=== PATIENT | male | born 1950 | race Caucasian/White ===

== ENCOUNTER → 2017-02-17 | Outpatient (REF) | payer MEDICARE ==
[2017-02-17 19:41] LABS: BASO % 0.4 % (0.0-1.0); EOS # 0.3 10^3/uL (0.0-0.50); EOS % 3.6 % (0.0-3.0); IMMATURE GRANULOCYTE # 0.1 10^3/uL (0-0); IMMATURE GRANULOCYTE % 0.7 % (0-0); LYMPH # 2.2 10^3/uL (1.5-4.5); LYMPH % 24.3 % (24.0-44.0); MEAN CORPUSCULAR HEMOGLOBIN 30.9 pg (27.0-33.0); MEAN CORPUSCULAR HGB CONC 33.6 g/dl (32.0-36.5); MEAN CORPUSCULAR VOLUME 92.1 fl (80.0-96.0); MONO # 0.5 10^3/uL (0.0-0.8); MONO % 5.6 % (0.0-5.0); NEUTROPHILS % 65.4 % (36.0-66.0); PLATELET COUNT, AUTOMATED 352 10^3/uL (150-450); RED CELL DISTRIBUTION WIDTH 13.9 % (11.5-14.5); WHITE BLOOD COUNT 9.2 10^3/uL (4.0-10.0)
[2017-02-17 20:26] LABS: ALBUMIN 3.4 GM/DL (3.2-5.2); ALBUMIN/GLOBULIN RATIO 1.06 (1.00-1.93); ALKALINE PHOSPHATASE 50 U/L (45-117); ALT/SGPT 24 U/L (12-78); ANION GAP 10 MEQ/L (8-16); AST/SGOT 18 U/L (7-37); BILIRUBIN,TOTAL 0.4 MG/DL (0.2-1.0); BLOOD UREA NITROGEN 12 MG/DL (7-18); CARBON DIOXIDE LEVEL 31 MEQ/L (21-32); CHLORIDE LEVEL 102 MEQ/L (98-107); CREATININE FOR GFR 0.77 MG/DL (0.70-1.30); GLOMERULAR FILTRATION RATE > 60.0 (>49); GLUCOSE, FASTING 179 MG/DL (80-110); POTASSIUM SERUM 4.2 MEQ/L (3.5-5.1); SODIUM LEVEL 143 MEQ/L (136-145); TOTAL PROTEIN 6.6 GM/DL (6.4-8.2)
== END ==
LOC: M LABDRWAD 19:33
DX: R78.81 Bacteremia (principal)
CPT/HCPCS: 80053

== ENCOUNTER 2018-03-07 11:39 | Emergency (ER) | payer MEDICARE ==
[~2018-03-07] VITALS: Ht 185.4 cm; Wt 110.0 kg
[2018-03-07] MEDS ORDERED: ONDANSETRON 4MG/2ML VIAL (J2405) IV ONE (12:15)
[2018-03-07] MEDS ORDERED: KETOROLAC 30 MG/ML VIAL (J1885) IV ONE (12:15)
[2018-03-07 12:24] LABS: BASO % 0.2 % (0.0-1.0); EOS # 0.1 10^3/uL (0.0-0.50); EOS % 0.5 % (0.0-3.0); HEMATOCRIT 40.9 % (42.0-52.0); HEMOGLOBIN 13.7 g/dl (13.5-17.5); LYMPH # 0.8 10^3/uL (1.5-4.5); LYMPH % 6.9 % (24.0-44.0); MEAN CORPUSCULAR HEMOGLOBIN 31.2 pg (27.0-33.0); MEAN CORPUSCULAR HGB CONC 33.5 g/dl (32.0-36.5); MEAN CORPUSCULAR VOLUME 93.2 fl (80.0-96.0); MONO # 0.4 10^3/uL (0.0-0.8); MONO % 3.1 % (0.0-5.0); NEUTROPHILS # 10.3 10^3/uL (1.8-7.7); PLATELET COUNT, AUTOMATED 224 10^3/uL (150-450); RED BLOOD COUNT 4.39 10^6/uL (4.30-6.10); WHITE BLOOD COUNT 11.5 10^3/uL (4.0-10.0)
[2018-03-07 12:56] LABS: ALBUMIN 3.4 GM/DL (3.2-5.2); ALT/SGPT 33 U/L (12-78); BILIRUBIN,TOTAL 0.6 MG/DL (0.2-1.0); BLOOD UREA NITROGEN 15 MG/DL (7-18); CALCIUM LEVEL 8.7 MG/DL (8.8-10.2); CARBON DIOXIDE LEVEL 29 MEQ/L (21-32); CHLORIDE LEVEL 105 MEQ/L (98-107); CPK CREATINE PHOSPHOKINASE 429 U/L (39-308); CREATININE FOR GFR 0.88 MG/DL (0.70-1.30); GAMMA GLUTAMYLTRANSPEPTIDASE 20 U/L (15-85); GLOMERULAR FILTRATION RATE > 60.0 (>49); GLUCOSE, FASTING 189 MG/DL (70-100); MB/CK RELATIVE INDEX 2.98 (< OR =4); SODIUM LEVEL 142 MEQ/L (136-145); TROPONIN I < 0.02 NG/ML (< 0.10)
--- NOTE | 2018-03-07 12:56 | REP ---
Clinical: Acute right upper quadrant abdominal pain. Technique: Valadez scale ultrasound using curved array transducer. Findings: Gallbladder demonstrates small amount of layering sludge and debris without wall thickening or pericholecystic fluid. No biliary ductal dilatation is appreciated. Common bile duct measures 6.5 mm diameter. Positive sonographic Barney's sign was elicited during examination. Fatty infiltration to the liver suggested without focal hepatic lesion identified. The pancreas is incompletely evaluated due to interposed bowel gas but visualized portions appear normal. The right kidney is normal in reniform shape without hydronephrosis and measures 11.7 x 6.6 x 5.6 cm. No ascites. Impression: 1. Cholelithiasis with sonographic Barney's sign. Acute cholecystitis cannot be excluded and clinical correlation is recommended. 2. Hepatic steatosis. Electronically Signed by Sina Berry MD 03/07/2018 12:48 P
[2018-03-07] MEDS ORDERED: KETO10TAB PO (13:29)
[2018-03-07] MEDS ORDERED: ZOFR4TAB14 PO (13:29)
[2018-03-07 13:41] VITALS: BP 133/72
--- NOTE | 2018-03-09 04:46 | ECGEPIP ---
Stationary ECG Study [facility] ED Test Date: 2018-03-07 Pat Name: HARRY ZUNIGA Department: Room: - Gender: M Manager Alliance: teodora : 1950 Requested By: VIVIAN Portillo PA-C Order Number: [id number] Reading MD: Jareth Doan Measurements Intervals [place] Rate: 61 P: 48 [place]: 216 QRS: 30 QRSD: 166 T: 36 QT: 459 QTc: 465 Interpretive Statements SINUS RHYTHM WITH FIRST DEGREE AV BLOCK LEFT BUNDLE BRANCH BLOCK NO PRIORS FOR COMPARISON Electronically Signed On 03-09-2018 4:45:59 EST by Jareth Doan
== END 2018-03-07 13:43 | disposition home or self-care (01) ==
LOC: M ED 11:39
DX: K80.20 Calculus of gallbladder without cholecystitis without obstruction (principal); R10.11 Right upper quadrant pain; Z90.49 Acquired absence of other specified parts of digestive tract
CPT/HCPCS: 76705; 80053; 82550; 82553; 82977; 84484; 85025; 93005; 96374; 96375; 99284; J1885; J2405

== ENCOUNTER 2019-03-22 16:27 | Inpatient (IN) | payer OTHER, MEDICARE ==
[~2019-03-22] VITALS: Ht 182.9 cm; Wt 113.8 kg
[~2019-03-22 16:27] MED LIST: ASPI81TA85 PO; ATOR1TAB19 PO; B-COTAB26 PO; CYCL5TAB PO; ETAN50SY SC; FOLI800C PO; GABA-843 PO; HYDR-3719 PO; IODOGEL TOP; KETO10TAB PO; KETO2CR TOP; LISI40TA PO; METF500T13 PO; METH2.5T48 PO; MUPI2OI TOP; OMEP-358 PO; OMEP10CASR PO; PATIENT COMMENTS; SERT-138 PO; SERT-141 PO; SODI0.65; TRIA1CR80 TOP; VITMTA PO; ZOFR4TAB14 PO
[2019-03-22] MEDS ORDERED: LORazepam 1 MG TAB PO STA (17:06)
[2019-03-22 17:10] LABS: HEMATOCRIT 42.3 % (42.0-52.0); HEMOGLOBIN 14.3 g/dl (13.5-17.5); MEAN CORPUSCULAR HGB CONC 33.8 g/dl (32.0-36.5); MEAN CORPUSCULAR VOLUME 91.6 fl (80.0-96.0); PLATELET COUNT, AUTOMATED 237 10^3/uL (150-450); RED BLOOD COUNT 4.62 10^6/uL (4.30-6.10); WHITE BLOOD COUNT 8.5 10^3/uL (4.0-10.0)
[2019-03-22 17:45] LABS: ACETAMINOPHEN LEVEL < 2.0 UG/ML (10.0-30.0); ALBUMIN 3.8 GM/DL (3.2-5.2); ALT/SGPT 32 U/L (12-78); BILIRUBIN,DIRECT 0.1 MG/DL (0.0-0.2); BILIRUBIN,TOTAL 0.4 MG/DL (0.2-1.0); BLOOD UREA NITROGEN 22 MG/DL (7-18); CALCIUM LEVEL 8.6 MG/DL (8.8-10.2); CARBON DIOXIDE LEVEL 28 MEQ/L (21-32); CHLORIDE LEVEL 107 MEQ/L (98-107); CREATININE FOR GFR 0.96 MG/DL (0.70-1.30); ETHYL ALCOHOL (ETHANOL) < 0.003 % (0.000-0.010); GLOMERULAR FILTRATION RATE > 60.0 (>49); GLUCOSE, FASTING 117 MG/DL (70-100); POTASSIUM SERUM 4.3 MEQ/L (3.5-5.1); SALICYLATE LEVEL < 1.7 MG/DL (5.0-30.0); SODIUM LEVEL 142 MEQ/L (136-145)
[2019-03-22 20:25] LABS: AMPHETAMINES LEVEL URINE NEGATIVE (NEGATIVE); BARBITURATES URINE NEGATIVE (NEGATIVE); BENZODIAZEPINES URINE NEGATIVE (NEGATIVE); CANNABINOIDS URINE NEGATIVE (NEGATIVE); COCAINE METABOLITE URINE NEGATIVE (NEGATIVE); METHADONE URINE NEGATIVE (NEGATIVE); OPIATES URINE NEGATIVE (NEGATIVE); PHENCYCLIDINE URINE NEGATIVE (NEGATIVE)
[2019-03-22] MEDS ORDERED: GABAPENTIN 300 MG CAP PO ONE (20:30)
[2019-03-22] MEDS ORDERED: CYCLOBENZAPRINE 5MG TABLET PO ONE (21:00)
[2019-03-22] MEDS ORDERED: ATORVASTATIN 20 MG TAB PO ONE (21:00)
[2019-03-22] MEDS ORDERED: ASPIRIN 81 MG CHEW TABLET PO ONE (21:00)
[2019-03-22] MEDS ORDERED: LIDOCAINE 5% (LIDODERM) PATCH TD ONE (21:45)
[2019-03-22] MEDS ORDERED: DICL1GEL3 TOP (22:19)
[2019-03-22] MEDS ORDERED: HM S0.65 (22:19)
[2019-03-22] MEDS ORDERED: SERT50TA29 PO (22:19)
[2019-03-22] MEDS ORDERED: OMEP-221 PO (22:19)
[2019-03-22] MEDS ORDERED: LIDO5OIN19 EXT (22:19)
[2019-03-22] MEDS ORDERED: GENT1SOL16 OU (22:19)
[2019-03-22] MEDS ORDERED: CAPS0.022 TOP (22:19)
[2019-03-22] MEDS ORDERED: MAALOX 30 ML SUSP *UDC PO PRN (22:45)
[2019-03-22] MEDS ORDERED: MOM 30ML SUSPENSION UDC PO PRN (22:45)
[2019-03-23 00:03] VITALS: BP 139/85
[2019-03-23 07:56] VITALS: BP 139/83
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
[2019-03-23] MEDS ORDERED: **NOTE PATIENT COMMENT** MISC XX ONE (09:00)
[2019-03-23] MEDS ORDERED: PREVNAR 13 VACCINE SYRINGE (CPT CODE:90670) IM ONE (09:00)
[2019-03-23] MEDS: ACETAMINOPHEN TAB 650MG DOSE (2X325MG) PO PRN (10:45)
[2019-03-23] MEDS ORDERED: SERTRALINE HCL 50 MG TAB PO ONE (10:45)
[2019-03-23 15:49] VITALS: BP 114/75
--- NOTE | 2019-03-23 16:03 | HPEPDOC ---
General Date of Admission Mar 22, 2019 at 22:34 Date of Service: Mar 23, 2019 Chief Complaint The patient is a 68-year-old male admitted with a reason for visit of Unspecified Depressive Disorder. Source: Patient Exam Limitations: No limitations History of Present Illness 68 year old male presents with suicidal ideations. Seen and evaluated at bedside, denies cp/pressure, n/v/d, abdominal pain, shortness of breath, urinary complaints. States he feels fine and has no specific complaints. Home Medications Scheduled Aspirin (Aspir 81) 81 Mg Tab, 81 MG PO DAILY, (Reported) Atorvastatin Calcium (Atorvastatin Calcium) 10 Mg Tab, 5 MG PO QHS, (Reported) Cyclobenzaprine HCl (Cyclobenzaprine HCl) 5 Mg Tab, 5 MG PO QHS, (Reported) Folic Acid/Vit B Complex and C (U-Hihueve-Atypgyy C Tr Tablet) 1 Tab Tab, 1 TAB PO DAILY, (Reported) Gabapentin (Gabapentin) 300 Mg Cap, 300 MG PO Q8H, (Reported) Metformin HCl (Metformin HCl) 500 Mg Tab, 500 MG PO BIDWM, (Reported) Multivitamins (Thera M Plus Tablet) 1 Tab Tab, 1 TAB PO DAILY, (Reported) Omeprazole (Omeprazole) 40 Mg Capsule.dr, 40 MG PO ACB, (Reported) Sertraline HCl (Sertraline HCl) 100 Mg Tab, 100 MG PO DAILY, (Reported) TAKES WITH 50MG FOR 150MG TOTAL Sertraline HCl (Sertraline HCl) 50 Mg Tablet, 50 MG PO DAILY, (Reported) TAKES WITH 100MG FOR 150MG TOTAL Scheduled PRN Capsaicin (Capsaicin) 0.025% Cream..g., 1 DOSE TOP TID PRN for PAIN, (Reported) Dextran/Hypromellose (Genteal Tears 0.1%-0.3% Drop) 15 Ml Drops, 1 DROP OU QID PRN for DRY EYES, (Reported) Diclofenac Sodium (Diclofenac Sodium) 1% 100GM Gel..gram., 4 GM TOP BID PRN for PAIN, (Reported) Hydrocodone/Acetaminophen (Hydrocodone-Acetamin 10-325 mg) 1 Tab Tab, 1 TAB PO Q6H PRN for PAIN, (Reported) Lidocaine (Lidocaine) 120 Gm Oint...g., 1 DOSE EXT DAILY PRN for PAIN, (Reported) APPLIES TO BACK Mupirocin (Mupirocin) 2 % Oin, 1 DOSE TOP BID PRN for BLISTERS, (Reported) APPLY TO LIP Sodium Chloride (Saline Nasal [place]) 44 Ml [place], 2 SPRAYS NA QID PRN for NASAL CONGESTION, (Reported) Allergies Coded Allergies: niacin (Verified Allergy, Unknown, 03/22/19) Past Medical History Medical History HLD, PTSD, chronic lower back pain, RA Surgical History small bowel resection Family History Significant Family History: No pertinent family hx Social History * Smoker: Denies Alcohol: Denies Drugs: denies A-FIB/CHADSVASC A-FIB History Current/History of A-Fib/PAF?: No Current PO Anticoag Therapy: No Age/Risk Factor Scoring CHADSVASC: CHADSVASC Response (Comments) Value Age Risk Factor Age 65-74 years old 1 Gender Risk Factor Male 0 Hx of CHF No 0 Hx of HTN No 0 Hx of Stroke/TIA/or VTE No 0 Hx of Diabetes Yes 1 Hx of Vascular Disease No 0 Total 2 Review of Systems Constitutional: Denies: Chills, Fever, Night Sweats Physical Examination General Exam: Positive: Alert, No Acute Distress Vital Signs Vital Signs Date Time Temp Pulse Resp B/P (MAP) Pulse Ox O2 Delivery O2 Flow Rate FiO2 03/23/19 15:49 97.5 86 16 114/75 (88) 03/23/19 00:03 Room Air 03/22/19 23:01 100 Laboratory Data Labs 24H Laboratory Tests 2 03/22/19 16:54: Nucleated Red Blood Cells % (auto) 0.0, Anion Gap 7L, Glomerular Filtration Rate > 60.0, Calcium Level 8.6L, Total Bilirubin 0.4, Direct Bilirubin 0.1, Aspartate Amino Transf (AST/SGOT) 29, Alanine Aminotransferase (ALT/SGPT) 32, Alkaline Phosphatase 71, Total Protein 7.0, Albumin 3.8, Albumin/Globulin Ratio 1.19, Thyroid Stimulating Hormone (TSH) 2.060, Salicylates Level < 1.7L, Acetaminophen Level < 2.0L, Ethyl Alcohol Level < 0.003 03/22/19 19:39: Urine Opiates Screen NEGATIVE, Urine Methadone Screen NEGATIVE, Urine Barbiturates Screen NEGATIVE, Urine Phencyclidine Screen NEGATIVE, Urine Amphetamines Screen NEGATIVE, Urine Benzodiazepines Screen NEGATIVE, Urine Cocaine Metabolite Screen NEGATIVE, Urine Cannabinoids Screen NEGATIVE CBC/BMP Laboratory Tests 03/22/19 16:54 Assessment/Plan 1. suicidal ideations - management as per psych. 2. HLD - continue atorvastatin. 3. DM2 - continue metformin. Please reconsult as needed. Plan / VTE VTE Prophylaxis Ordered?: No VTE Exclusion Mechanical Proph: Low Risk for VTE ERIC THOMAS MD Mar 23, 2019 16:03
[2019-03-24 06:31] VITALS: BP 149/91
[2019-03-24] MEDS: SERTRALINE HCL 50 MG TAB PO SCH (08:26)
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
[2019-03-24] MEDS ORDERED: MUPIROCIN 2% OINT 22 GM TUBE TOP PRN (10:00)
[2019-03-24] MEDS ORDERED: LIDOCAINE 5% OINT 30 GM TOP PRN (10:00)
[2019-03-24] MEDS ORDERED: SODIUM CHLORIDE NASAL 0.65% SPRAY BTL (OCEAN) PRN (10:00)
[2019-03-24] MEDS ORDERED: CAPSAICIN 0.025% CR 60 GM TOP PRN (10:00)
[2019-03-24] MEDS: GABAPENTIN 300 MG CAP PO SCH ×2 (13:28→21:24)
--- NOTE | 2019-03-24 14:51 | IPNPDOC ---
Subjective Date Seen The patient was seen on 03/24/19. Subjective Chief Complaint/HPI Seen and evaluated at bedside. Complaints of "redness to my R eye since I woke up this morning". Denies any significant eye pain, just "sore sometimes when I close my eye". Denies vision changes, diplopia, discharge, fever/chills, scratching or injury/foreign body. BP running in 130-140's range. General: Reports: Normal Appetite; Denies: Chills, Night Sweats, Fatigue, Malaise Constitutional: Denies: Chills, Fever, Night Sweats Eyes: Reports: Conjunctivae inflammation, Redness ENT: Denies: Head Aches, Ear Pain, Dysphagia Skin: Denies: Rash, Lesions, Breakdown Pulmonary: Denies: Dyspnea, Cough Cardiovascular: Denies: Chest Pain, Palpitations, Orthopnea, Paroxysmal Noc. Dyspnea, Lt Headedness Gastrointestinal: Denies: Nausea, Vomiting, Abdominal Pain, Diarrhea, Constipation Genitourinary: Denies: Dysuria, Frequency, Incontinence, Retention Hematologic: Denies: Bruising, Bleeding Excessively Musculoskeletal: Denies: Neck Pain, Back Pain, Joint Pain, Muscle Pain, Spasms Neurological: Denies: Weakness, Numbness, Change in speech, Confusion Psych: Reports: Mood Normal; Denies: Depression, Memory Issues Objective Physical Examination General Exam: Positive: Alert, No Acute Distress Eye Exam: Positive: Other Eye Symptoms (conjunctival hemorrhage R eye, no foreign body noted, no discharge.) ENT Exam: Positive: Atraumatic, Mucous membr. moist/pink, Pharynx Normal Neck Exam: Positive: Supple; Negative: JVD, thyromegaly Chest Exam: Positive: Clear to auscultation, Normal air movement Heart Exam: Positive: Rate Normal, Regular Rhythm, Normal S1, Normal S2; Negative: Murmurs, Rubs Telemetry: Positive: No significant arrhythmia Abdomen Exam: Positive: Normal bowel sounds, Soft; Negative: Tenderness, Hepatospenomegaly Male Exam: Positive: Normal Genital Exam Extremity Exam: Positive: Normal pulses; Negative: Clubbing, Cyanosis, Edema Skin Exam: Positive: Nl turgor and temperature; Negative: Rash, Breakdown Neuro Exam: Positive: Normal Gait, Normal Speech, Cranial Nerves 3-12 NL, Reflexes 2+ Psych Exam: Positive: Mental status NL, Mood NL, Oriented x 3 Assessment /Plan Assessment 1. subconjunctival hemorrhage R eye - denies trauma to eye, no foreign body noted on exam. - no vision changes or significant eye pain noted. - denies excessive sneezing, coughing, straining, excessive eye rubbing. - no signs of infections noted. - BP has been steady in 130-140's systolic. - would recommend artificial tears eye drops applied to R eye at least twice daily for any irritation. - symptoms usually will improve/resolve over the course of the next few days. Please call or reconsult as needed if symptoms persist of worsen. Thank you. Plan/VTE VTE Prophylaxis Ordered?: No VS, I&O, 24H, Fishbone Vital Signs/I&O Vital Signs Date Time Temp Pulse Resp B/P (MAP) Pulse Ox O2 Delivery O2 Flow Rate FiO2 03/24/19 06:31 97.5 79 14 149/91 (110) Room Air 03/22/19 23:01 100 ERIC THOMAS MD Mar 24, 2019 14:51
[2019-03-24] MEDS ORDERED: POLYVINYL ALCOHOL OPHTH SOLN 15 ML(LIQUITEARS) OD PRN (15:00)
[2019-03-24 16:40] VITALS: BP 125/72
[2019-03-24] MEDS: metFORMIN (GLUCOPHAGE) 500 MG TAB PO SCH (17:32)
[2019-03-24] MEDS: CYCLOBENZAPRINE 5MG TABLET PO SCH (21:24)
[2019-03-24] MEDS: ATORVASTATIN 5MG PER 1/2 TABLET PO SCH (21:24)
[2019-03-24] MEDS: traZODone 50 MG TAB PO PRN (21:26)
[2019-03-25] MEDS: GABAPENTIN 300 MG CAP PO SCH ×3 (05:50→21:16)
[2019-03-25 06:39] VITALS: BP 140/86
[2019-03-25] MEDS: metFORMIN (GLUCOPHAGE) 500 MG TAB PO SCH ×2 (07:56→17:12)
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
[2019-03-25] MEDS: MULTIVITAMINS/MINERALS THERAP 1 TAB PO SCH (09:18)
[2019-03-25] MEDS: VITAMIN B COMPLEX/VIT C CAP PO SCH (09:18)
[2019-03-25] MEDS: ASPIRIN 81 MG ENTERIC TAB PO SCH (09:18)
[2019-03-25] MEDS: SERTRALINE HCL 50 MG TAB PO SCH (09:18)
[2019-03-25 16:17] VITALS: BP 119/75
[2019-03-25] MEDS: ATORVASTATIN 5MG PER 1/2 TABLET PO SCH (20:03)
[2019-03-25] MEDS: traZODone 50 MG TAB PO PRN (20:03)
[2019-03-25] MEDS: CYCLOBENZAPRINE 5MG TABLET PO SCH (20:03)
[2019-03-25] MEDS: ACETAMINOPHEN TAB 650MG DOSE (2X325MG) PO PRN (22:25)
[2019-03-26] MEDS: GABAPENTIN 300 MG CAP PO SCH ×3 (05:49→21:18)
[2019-03-26 06:39] VITALS: BP_SYST 131; BP_SYST 134; BP_DIAS 74; BP_DIAS 82
[2019-03-26] MEDS: metFORMIN (GLUCOPHAGE) 500 MG TAB PO SCH ×2 (08:07→17:58)
[2019-03-26] MEDS: ASPIRIN 81 MG ENTERIC TAB PO SCH (08:55)
[2019-03-26] MEDS: MULTIVITAMINS/MINERALS THERAP 1 TAB PO SCH (08:57)
[2019-03-26] MEDS: VITAMIN B COMPLEX/VIT C CAP PO SCH (08:58)
[2019-03-26] MEDS: SERTRALINE HCL 50 MG TAB PO SCH (08:58)
[2019-03-26] MEDS: ACETAMINOPHEN TAB 650MG DOSE (2X325MG) PO PRN ×2 (08:59→15:35)
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
[2019-03-26 16:59] VITALS: BP 113/67
[2019-03-26] MEDS: CYCLOBENZAPRINE 5MG TABLET PO SCH (21:18)
[2019-03-26] MEDS: traZODone 50 MG TAB PO PRN (21:18)
[2019-03-26] MEDS: ATORVASTATIN 5MG PER 1/2 TABLET PO SCH (21:18)
[2019-03-27] MEDS: GABAPENTIN 300 MG CAP PO SCH ×2 (06:12→14:11)
[2019-03-27 07:00] VITALS: BP 149/78
[2019-03-27] MEDS ORDERED: SERT-138 PO (08:49)
[2019-03-27] MEDS ORDERED: TRAZ-252 PO (08:49)
[2019-03-27] MEDS ORDERED: SERT50TA29 PO (08:49)
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
[2019-03-27] MEDS: ASPIRIN 81 MG ENTERIC TAB PO SCH (08:55)
[2019-03-27] MEDS: SERTRALINE HCL 50 MG TAB PO SCH (08:55)
[2019-03-27] MEDS: MULTIVITAMINS/MINERALS THERAP 1 TAB PO SCH (08:55)
[2019-03-27] MEDS: metFORMIN (GLUCOPHAGE) 500 MG TAB PO SCH (08:55)
[2019-03-27] MEDS: VITAMIN B COMPLEX/VIT C CAP PO SCH (08:55)
[2019-03-27] MEDS: ACETAMINOPHEN TAB 650MG DOSE (2X325MG) PO PRN (08:56)
== END 2019-03-27 14:16 | disposition home or self-care (01) | DRG 882 ==
LOC: M ED 16:27 → M ED INP 22:34 → M PSY 23:55
PROVIDERS: ADMIT Psychiatry & Neurology Psychiatry; ATTEND Psychiatry & Neurology Psychiatry
DX: F43.10 Post-traumatic stress disorder, unspecified (principal); R45.851 Suicidal ideations; R45.850 Homicidal ideations; M54.5 Low back pain; E78.5 Hyperlipidemia, unspecified; M06.9 Rheumatoid arthritis, unspecified; H11.31 Conjunctival hemorrhage, right eye; E11.9 Type 2 diabetes mellitus without complications; Z91.14 Patient's other noncompliance with medication regimen; Z79.82 Long term (current) use of aspirin; Z79.84 Long term (current) use of oral hypoglycemic drugs; Z79.899 Other long term (current) drug therapy; Z88.8 Allergy status to other drugs, medicaments and biological substances

== ENCOUNTER 2021-08-31 14:34 | Emergency (ER) | payer OTHER ==
[~2021-08-31] VITALS: Ht 185.4 cm; Wt 104.8 kg
[~2021-08-31 14:34] MED LIST changes: -ASPI81TA85 PO; +ASPI81TA86 PO; +CAPS0.022 TOP; +DICL1GEL3 TOP; +GABA-282 PO; -GABA-843 PO; +GENT1SOL16 OU; +HM S0.65; +LIDO5OIN19 EXT; -LISI40TA PO; +LISI40TA4 PO; +OMEP40CA5 PO; +SERT50TA29 PO; +TRAZ-252 PO
[2021-08-31 17:55] LABS: BASO % 0.4 % (0.0-1.0); EOS # 0.2 10^3/uL (0.0-0.5); EOS % 1.8 % (0.0-3.0); HEMOGLOBIN 13.5 g/dl (13.5-17.5); LYMPH # 1.4 10^3/uL (1.5-5.0); LYMPH % 17.1 % (24.0-44.0); MEAN CORPUSCULAR HEMOGLOBIN 30.5 pg (27.0-33.0); MEAN CORPUSCULAR HGB CONC 33.8 g/dl (32.0-36.5); MEAN CORPUSCULAR VOLUME 90.3 fl (80.0-96.0); MONO # 0.6 10^3/uL (0.0-0.8); MONO % 6.7 % (2.0-8.0); NEUTROPHILS # 6.1 10^3/uL (1.5-8.5); NEUTROPHILS % 73.8 % (36.0-66.0); PLATELET COUNT, AUTOMATED 186 10^3/uL (150-450); RED BLOOD COUNT 4.43 10^6/uL (4.30-6.10); WHITE BLOOD COUNT 8.2 10^3/uL (4.0-10.0)
[2021-08-31 18:08] LABS: ALBUMIN 3.6 GM/DL (3.2-5.2); ALT/SGPT 32 U/L (12-78); BILIRUBIN,DIRECT 0.2 MG/DL (0.0-0.2); BILIRUBIN,TOTAL 0.4 MG/DL (0.2-1.0); BLOOD UREA NITROGEN 16 MG/DL (7-18); CALCIUM LEVEL 8.6 MG/DL (8.8-10.2); CARBON DIOXIDE LEVEL 28 MEQ/L (21-32); CHLORIDE LEVEL 109 MEQ/L (98-107); CREATININE FOR GFR 0.82 MG/DL (0.70-1.30); GLOMERULAR FILTRATION RATE > 60.0 (>42); GLUCOSE, FASTING 90 MG/DL (70-100); POTASSIUM SERUM 4.2 MEQ/L (3.5-5.1); SODIUM LEVEL 143 MEQ/L (136-145); TOTAL PROTEIN 6.4 GM/DL (6.4-8.2)
[2021-08-31 18:09] LABS: HEMOGLOBIN A1c 5.5 %
[2021-08-31] MEDS ORDERED: VANCOMYCIN HCL 2,000 MG in D5W 500 ML IV ONE (18:20)
[2021-08-31 18:51] LABS: ERYTHROCYTE SEDIMENTATION RATE 16 mm/hr (0-20)
[2021-08-31] MEDS ORDERED: VANCOMYCIN HCL 1,000 MG, VIAL MATE ADAPTER 1 EACH in NS 250 ML IV ONE ×2 (19:00→20:00)
[2021-08-31] MEDS ORDERED: PROHANCE 279.3MG/ML 15ML VIAL As Ordered ONE (20:15)
[2021-08-31] MEDS ORDERED: PROHANCE 279.3MG/ML 5ML VIAL As Ordered ONE (20:15)
[2021-08-31] MEDS ORDERED: BACT800T5 PO (21:53)
[2021-08-31 23:12] VITALS: BP 146/72
== END 2021-09-01 00:15 | disposition home or self-care (01) ==
LOC: M ED 14:34
DX: E11.8 Type 2 diabetes mellitus with unspecified complications (principal); M53.85 Other specified dorsopathies, thoracolumbar region; G54.8 Other nerve root and plexus disorders; G83.4 Cauda equina syndrome; M48.00 Spinal stenosis, site unspecified; S91.104A Unspecified open wound of right lesser toe(s) without damage to nail, initial encounter; X58.XXXA Exposure to other specified factors, initial encounter; Y92.89 Other specified places as the place of occurrence of the external cause; I10 Essential (primary) hypertension; E78.5 Hyperlipidemia, unspecified; Z87.19 Personal history of other diseases of the digestive system; Z88.8 Allergy status to other drugs, medicaments and biological substances; Z79.899 Other long term (current) drug therapy; Z79.82 Long term (current) use of aspirin; Z79.84 Long term (current) use of oral hypoglycemic drugs
CPT/HCPCS: 72158; 73660; 80048; 80076; 83036; 85025; 85652; 86140; 96365; 96366; 96367; 99283; A9576; J3370

== ENCOUNTER → 2022-01-27 | Outpatient (REF) | payer OTHER ==
[~2022-01-27] MED LIST changes: +BACT800T5 PO
== END ==
LOC: M LAB REF 12:37
PROVIDERS: ATTEND Podiatrist
DX: M79.674 Pain in right toe(s) (principal)

== ENCOUNTER 2023-09-04 17:14 | Inpatient (IN) | payer OTHER ==
[~2023-09-04] VITALS: Ht 185.4 cm; Wt 103.0 kg
[~2023-09-04 17:14] MED LIST changes: +ACET-907 PO; +AMOX875T2 PO; +ASPI-615 PO; +ATOR40TA75 PO; +CARV6.25 PO; +DICL100G10 TOP; -DICL1GEL3 TOP; +DOXY-323 PO; +DOXY100C3 PO; +FURO20TA2 PO; -HM S0.65; +LISI20TA33 PO; +MAGN400T2 PO; +MIRA33506 PO; +PREG25CA PO; +SALI0.6531; +SENN-23 PO; +VITA500T41 PO; +ZOLO100T PO
[2023-09-04 18:40] LABS: BASO % 0.3 % (0.0-1.0); EOS % 0.3 % (0.0-3.0); HEMATOCRIT 36.8 % (42.0-52.0); HEMOGLOBIN 12.7 g/dl (13.5-17.5); LYMPH # 0.9 10^3/uL (1.5-5.0); MEAN CORPUSCULAR HGB CONC 34.5 g/dl (32.0-36.5); MEAN CORPUSCULAR VOLUME 89.8 fl (80.0-96.0); MONO # 0.6 10^3/uL (0.0-0.8); MONO % 6.2 % (2.0-8.0); NEUTROPHILS # 8.2 10^3/uL (1.5-8.5); NEUTROPHILS % 83.9 % (36.0-66.0); PLATELET COUNT, AUTOMATED 136 10^3/uL (150-450); WHITE BLOOD COUNT 9.8 10^3/uL (4.0-10.0)
[2023-09-04 19:02] LABS: ERYTHROCYTE SEDIMENTATION RATE 26 mm/hr (0-20)
[2023-09-04 19:03] LABS: BLOOD UREA NITROGEN 20 MG/DL (9-23); CALCIUM LEVEL 8.2 MG/DL (8.3-10.6); CARBON DIOXIDE LEVEL 26 MMOL/L (20-31); CHLORIDE LEVEL 103 MMOL/L (98-107); CREATININE FOR GFR 1.15 MG/DL (0.70-1.30); GLOMERULAR FILTRATION RATE > 60.0 (>42); GLUCOSE, FASTING 104 MG/DL (74-106); POTASSIUM SERUM 3.4 MMOL/L (3.5-5.1); SODIUM LEVEL 134 MMOL/L (136-145)
[2023-09-04] MEDS: CEFTAROLINE FOSAMIL 600 MG in D5W MINI-BAG PLUS 50 ML IV ONE (21:12)
[2023-09-04] MEDS ORDERED: GLUCOSE 4 GM CHEW PO PRN (22:45)
[2023-09-04] MEDS ORDERED: MOM 30ML SUSPENSION UDC PO PRN (22:45)
[2023-09-04] MEDS ORDERED: DEXTROSE 50% 50ML SYRINGE IV PRN (22:45)
[2023-09-04] MEDS ORDERED: GLUCAGON INJ 1MG VIAL SC PRN (22:45)
[2023-09-04 23:13] LABS: MAGNESIUM LEVEL 1.8 MG/DL (1.8-2.4)
[2023-09-04] MEDS ORDERED: VANCOMYCIN HCL 1,000 MG, VIAL MATE ADAPTER 1 EACH in NS 250 ML IV SCH (23:15)
[2023-09-04] MEDS ORDERED: THERTAB19 PO (23:15)
[2023-09-04] MEDS ORDERED: HOME MED LIST COMPLETE! XX SCH (23:20)
[2023-09-04] MEDS: VANCOMYCIN HCL 1,000 MG, VIAL MATE ADAPTER 1 EACH in D5W 250 ML IV ONE (23:21)
[2023-09-04] MEDS: POTASSIUM CHLORIDE 10% LIQ 20MEQ/15ML UDC PO ONE (23:21)
[2023-09-05 00:42] VITALS: BP 122/65; TEMP 97.5; O2SAT 98
[2023-09-05] MEDS: VANCOMYCIN HCL 1,000 MG, VIAL MATE ADAPTER 1 EACH in D5W 250 ML IV ONE (01:18)
[2023-09-05 05:14] VITALS: BP 101/55; TEMP 97.7; O2SAT 99
[2023-09-05 06:16] LABS: HEMATOCRIT 34.4 % (42.0-52.0); HEMOGLOBIN 11.9 g/dl (13.5-17.5); MEAN CORPUSCULAR HEMOGLOBIN 30.9 pg (27.0-33.0); MEAN CORPUSCULAR HGB CONC 34.6 g/dl (32.0-36.5); MEAN CORPUSCULAR VOLUME 89.4 fl (80.0-96.0); PLATELET COUNT, AUTOMATED 116 10^3/uL (150-450); RED BLOOD COUNT 3.85 10^6/uL (4.30-6.10); WHITE BLOOD COUNT 7.7 10^3/uL (4.0-10.0)
[2023-09-05 06:47] LABS: ALBUMIN 3.2 G/DL (3.2-5.2); ALKALINE PHOSPHATASE 42 U/L (46-116); ALT/SGPT 24 U/L (7.0-40); AST/SGOT 13 U/L (<34); BILIRUBIN,TOTAL 1.4 MG/DL (0.3-1.2); BLOOD UREA NITROGEN 17 MG/DL (9-23); CARBON DIOXIDE LEVEL 24 MMOL/L (20-31); CHLORIDE LEVEL 106 MMOL/L (98-107); CREATININE FOR GFR 1.04 MG/DL (0.70-1.30); GLOMERULAR FILTRATION RATE > 60.0 (>42); GLUCOSE, FASTING 104 MG/DL (74-106); POTASSIUM SERUM 3.3 MMOL/L (3.5-5.1); SODIUM LEVEL 135 MMOL/L (136-145); TOTAL PROTEIN 5.7 G/DL (5.7-8.2)
[2023-09-05] MEDS: INSULIN LISPRO (NovoLOG) PER UNIT SC SCH ×2 (07:30→21:00)
[2023-09-05] MEDS: CEFTAROLINE FOSAMIL 600 MG in D5W MINI-BAG PLUS 50 ML IV SCH (08:28)
[2023-09-05] MEDS: ENOXAPARIN 40MG/0.4ML SYRINGE (J1650 PER 10MG) SC SCH (08:28)
[2023-09-05] MEDS: DOCUSATE SODIUM 100MG CAPSULE PO SCH (08:29)
[2023-09-05] MEDS: ASPIRIN 81MG ENTERIC TABLET PO SCH (08:29)
[2023-09-05] MEDS: SERTRALINE 100 MG TAB PO SCH (08:29)
[2023-09-05] MEDS: CARVedilol 6.25 MG TAB PO SCH (08:29)
[2023-09-05] MEDS: POTASSIUM CHLORIDE 10MEQ SR TABLET PO ONE (08:29)
[2023-09-05] MEDS ORDERED: VANCOMYCIN HCL 500 MG in D5W MINI-BAG PLUS 100 ML IV SCH (11:00)
[2023-09-05 12:00] VITALS: BP 116/70; TEMP 97.2; O2SAT 95
[2023-09-05] MEDS ORDERED: VANCOMYCIN HCL 750 MG, VIAL MATE ADAPTER 1 EACH in D5W 250 ML IV SCH (12:00)
[2023-09-05] MEDS: FUROSEMIDE 20 MG TAB PO SCH (12:40)
[2023-09-05 12:55] LABS: INR 1.1; PARTIAL THROMBOPLASTIN TIME 33.9 SECONDS (24.8-34.2); PROTHROMBIN TIME 13.9 SECONDS (12.5-14.5)
[2023-09-05] MEDS: ACETAMINOPHEN TAB 650MG DOSE (2X325MG) PO PRN (15:09)
[2023-09-05 20:32] VITALS: BP 116/70
[2023-09-05] MEDS: ATORVASTATIN 20 MG TAB PO SCH (20:32)
[2023-09-05 20:42] VITALS: BP 124/58; TEMP 97.2; O2SAT 98
[2023-09-05 21:38] VITALS: BP 121/58; O2SAT 97
[2023-09-06 03:17] VITALS: BP 123/62; TEMP 97.2; O2SAT 98
[2023-09-06] MEDS: MAGNESIUM OXIDE 400MG TAB (MAG-OX) PO SCH (08:01)
[2023-09-06 08:24] LABS: HEMATOCRIT 37.3 % (42.0-52.0); HEMOGLOBIN 12.7 g/dl (13.5-17.5); MEAN CORPUSCULAR HEMOGLOBIN 31.1 pg (27.0-33.0); MEAN CORPUSCULAR VOLUME 91.2 fl (80.0-96.0); PLATELET COUNT, AUTOMATED 147 10^3/uL (150-450); RED BLOOD COUNT 4.09 10^6/uL (4.30-6.10); WHITE BLOOD COUNT 8.1 10^3/uL (4.0-10.0)
[2023-09-06 08:35] LABS: ERYTHROCYTE SEDIMENTATION RATE 35 mm/hr (0-20)
[2023-09-06 08:54] LABS: C REACTIVE PROTEIN QUANTITATIV 8.1 MG/DL (<1.0)
[2023-09-06 09:02] LABS: PROCALCITONIN 0.2 ng/ml
[2023-09-06 11:16] VITALS: BP 152/76; TEMP 97.2; O2SAT 96
== END 2023-09-06 12:10 | disposition home or self-care (01) | DRG 638 ==
LOC: M ED 17:14 → M ED INP 22:44 → M MS5PR 09-05 00:19
PROVIDERS: ADMIT Family Medicine; ATTEND Student in an Organized Health Care Education/Training Program
PROC: 0HBNXZZ Excision of Left Foot Skin, External Approach (ICD-10-PCS; principal; 2023-09-05)
DX: E11.622 Type 2 diabetes mellitus with other skin ulcer (principal); L03.116 Cellulitis of left lower limb; L97.929 Non-pressure chronic ulcer of unspecified part of left lower leg with unspecified severity; E11.621 Type 2 diabetes mellitus with foot ulcer; E11.42 Type 2 diabetes mellitus with diabetic polyneuropathy; E78.5 Hyperlipidemia, unspecified; F43.10 Post-traumatic stress disorder, unspecified; D69.6 Thrombocytopenia, unspecified; M06.9 Rheumatoid arthritis, unspecified; M54.50 Low back pain, unspecified; G89.29 Other chronic pain; I10 Essential (primary) hypertension; E87.6 Hypokalemia; F32.A Depression, unspecified; F41.9 Anxiety disorder, unspecified; Z79.899 Other long term (current) drug therapy; Z88.8 Allergy status to other drugs, medicaments and biological substances; Z90.49 Acquired absence of other specified parts of digestive tract

== ENCOUNTER 2023-09-22 14:14 | Emergency (ER) | payer OTHER, MEDICARE ==
[~2023-09-22] VITALS: Ht 185.4 cm; Wt 95.5 kg
[~2023-09-22 14:14] MED LIST changes: +THERTAB19 PO
[2023-09-22 15:57] LABS: BASO % 0.6 % (0.0-1.0); EOS # 0.2 10^3/uL (0.0-0.5); EOS % 2.7 % (0.0-3.0); HEMATOCRIT 38.2 % (42.0-52.0); HEMOGLOBIN 12.9 g/dl (13.5-17.5); LYMPH # 1.2 10^3/uL (1.5-5.0); LYMPH % 17.5 % (24.0-44.0); MEAN CORPUSCULAR HGB CONC 33.8 g/dl (32.0-36.5); MEAN CORPUSCULAR VOLUME 91.8 fl (80.0-96.0); MONO # 0.5 10^3/uL (0.0-0.8); NEUTROPHILS % 71.8 % (36.0-66.0); PLATELET COUNT, AUTOMATED 152 10^3/uL (150-450); RED BLOOD COUNT 4.16 10^6/uL (4.30-6.10)
[2023-09-22 16:01] LABS: ERYTHROCYTE SEDIMENTATION RATE 15 mm/hr (0-20)
[2023-09-22 16:28] LABS: BLOOD UREA NITROGEN 11 MG/DL (9-23); CALCIUM LEVEL 8.5 MG/DL (8.3-10.6); CARBON DIOXIDE LEVEL 27 MMOL/L (20-31); CHLORIDE LEVEL 108 MMOL/L (98-107); CREATININE FOR GFR 0.83 MG/DL (0.70-1.30); GLOMERULAR FILTRATION RATE > 60.0 (>42); GLUCOSE, FASTING 88 MG/DL (74-106); SODIUM LEVEL 142 MMOL/L (136-145)
[2023-09-22] MEDS: CEPHALEXIN 500 MG CAP PO ONE (17:58)
[2023-09-22] MEDS: KETOROLAC 30 MG/ML 1ML VIAL IV ONE (17:59)
[2023-09-22] MEDS ORDERED: CEPH500C PO (18:01)
[2023-09-22 18:18] VITALS: BP 159/82; TEMP 97.2; O2SAT 99
== END 2023-09-22 18:39 | disposition home or self-care (01) ==
LOC: M ED 14:14
DX: L03.032 Cellulitis of left toe (principal); L84 Corns and callosities; E11.42 Type 2 diabetes mellitus with diabetic polyneuropathy; I10 Essential (primary) hypertension; E78.5 Hyperlipidemia, unspecified; M21.372 Foot drop, left foot; I48.91 Unspecified atrial fibrillation; F43.10 Post-traumatic stress disorder, unspecified; F32.A Depression, unspecified; Z87.19 Personal history of other diseases of the digestive system; Z90.49 Acquired absence of other specified parts of digestive tract; Z79.82 Long term (current) use of aspirin; Z79.02 Long term (current) use of antithrombotics/antiplatelets; Z79.84 Long term (current) use of oral hypoglycemic drugs; Z88.8 Allergy status to other drugs, medicaments and biological substances
CPT/HCPCS: 80048; 83605; 85025; 85652; 86140; 87040; 96374; 99283; J1885

== ENCOUNTER 2024-06-12 18:51 | Emergency (ER) | payer OTHER, MEDICARE ==
[~2024-06-12] VITALS: Ht 185.4 cm; Wt 105.6 kg
[~2024-06-12 18:51] MED LIST changes: +CEPH500C PO; -CYCL5TAB PO; +CYCL5TAB4 PO; -DOXY-323 PO; +DOXY-441 PO; +GABA-1172 PO; -GABA-282 PO
[2024-06-12 18:53] VITALS: TEMP 98
[2024-06-12 21:23] LABS: BASO % 0.3 % (0.0-1.0); EOS # 0.2 10^3/uL (0.0-0.5); EOS % 1.7 % (0.0-3.0); HEMATOCRIT 39.7 % (42.0-52.0); HEMOGLOBIN 13.8 g/dl (13.5-17.5); LYMPH # 1.3 10^3/uL (1.5-5.0); MEAN CORPUSCULAR HEMOGLOBIN 31.5 pg (27.0-33.0); MEAN CORPUSCULAR HGB CONC 34.8 g/dl (32.0-36.5); MEAN CORPUSCULAR VOLUME 90.6 fl (80.0-96.0); MONO # 0.6 10^3/uL (0.0-0.8); MONO % 6.4 % (2.0-8.0); NEUTROPHILS # 7.1 10^3/uL (1.5-8.5); NEUTROPHILS % 77.3 % (36.0-66.0); PLATELET COUNT, AUTOMATED 147 10^3/uL (150-450); RED BLOOD COUNT 4.38 10^6/uL (4.30-6.10); WHITE BLOOD COUNT 9.2 10^3/uL (4.0-10.0)
[2024-06-12 21:30] LABS: ERYTHROCYTE SEDIMENTATION RATE 10 mm/hr (0-20)
[2024-06-12 21:45] LABS: BLOOD UREA NITROGEN 16 MG/DL (9-23); C REACTIVE PROTEIN QUANTITATIV 0.56 MG/DL (<1.0); CALCIUM LEVEL 8.6 MG/DL (8.3-10.6); CARBON DIOXIDE LEVEL 25 MMOL/L (20-31); CHLORIDE LEVEL 108 MMOL/L (98-107); CREATININE FOR GFR 0.93 MG/DL (0.70-1.30); GLOMERULAR FILTRATION RATE > 60.0 (>42); GLUCOSE, FASTING 88 MG/DL (74-106); POTASSIUM SERUM 3.6 MMOL/L (3.5-5.1); SODIUM LEVEL 141 MMOL/L (136-145)
[2024-06-12] MEDS: ceFAZolin SOD 2 GM in DEXTROSE 5% (D5W) ADV/MINI-BAG 50 ML IV ONE (23:01)
[2024-06-13] MEDS ORDERED: CEPH500C PO (01:02)
[2024-06-13 02:18] VITALS: BP 158/73
[2024-06-13 02:21] VITALS: O2SAT 97
== END 2024-06-13 02:34 | disposition home or self-care (01) ==
LOC: M ED 18:51
DX: L03.116 Cellulitis of left lower limb (principal); E11.9 Type 2 diabetes mellitus without complications; Z79.82 Long term (current) use of aspirin; Z79.899 Other long term (current) drug therapy; Z88.8 Allergy status to other drugs, medicaments and biological substances
CPT/HCPCS: 73630; 80048; 83605; 85025; 85652; 86140; 87040; 96365; 99284; J0690

== ENCOUNTER 2024-10-19 10:07 | Emergency (ER) | payer OTHER, MEDICARE ==
[~2024-10-19] VITALS: Ht 185.4 cm; Wt 98.5 kg
[~2024-10-19 10:07] MED LIST changes: +LISI40TA10 PO; -LISI40TA4 PO; -PREG25CA PO; +PREG25CA63 PO
[2024-10-19] MEDS ORDERED: AMOX875T2 PO (11:46)
[2024-10-19] MEDS ORDERED: DOXY-440 PO (11:46)
[2024-10-19 11:54] VITALS: BP 123/69; TEMP 98.2; O2SAT 98
== END 2024-10-19 11:58 | disposition home or self-care (01) ==
LOC: M ED 10:07
DX: S50.861A Insect bite (nonvenomous) of right forearm, initial encounter (principal); W57.XXXA Bitten or stung by nonvenomous insect and other nonvenomous arthropods, initial encounter; Y92.9 Unspecified place or not applicable; Y93.9 Activity, unspecified; Y99.9 Unspecified external cause status; Z79.82 Long term (current) use of aspirin; Z79.899 Other long term (current) drug therapy; Z88.8 Allergy status to other drugs, medicaments and biological substances